=== PATIENT | female | born 1980 | race Caucasian/White ===

== ENCOUNTER 2018-04-13 15:00 | Inpatient (IN) | payer OTHER ==
[~2018-04-13] VITALS: Ht 177.8 cm; Wt 3.6 kg
[~2018-04-13 15:00] MED LIST: PRENATABS RX TA1 TAB
== END 2018-05-09 13:10 | disposition home or self-care, planned readmission (81) | DRG 785 ==
LOC: OB/GYN 04-27 15:00 → LDR 05-07 05:50 → SURG-SUITE 05-07 05:50 → O/R 05-07 15:21 → SURG-SUITE 05-07 20:06
PROVIDERS: Obstetrics & Gynecology Maternal & Fetal Medicine
PROC: 0UL70ZZ Occlusion of Bilateral Fallopian Tubes, Open Approach (ICD-10-PCS; 2018-05-07)
PROC: 4A1HXCZ Monitoring of Products of Conception, Cardiac Rate, External Approach (ICD-10-PCS; 2018-05-07)
PROC: 10D00Z1 Extraction of Products of Conception, Low, Open Approach (ICD-10-PCS; principal; 2018-05-07 13:30)
DX: O64.1XX0 Obstructed labor due to breech presentation, not applicable or unspecified (principal); Z3A.39 39 weeks gestation of pregnancy; Z37.0 Single live birth; Z30.2 Encounter for sterilization

== ENCOUNTER 2018-04-27 12:48 | Outpatient (CLI) | payer OTHER | END 2018-04-27 13:49 | disposition home or self-care (01) | LOC: NST 12:48 | DX: Z34.83 Encounter for supervision of other normal pregnancy, third trimester (principal) ==

== ENCOUNTER 2018-05-04 11:07 | Outpatient (CLI) | payer OTHER | END 2018-05-04 12:04 | disposition home or self-care (01) | LOC: NST 11:07 | DX: Z34.83 Encounter for supervision of other normal pregnancy, third trimester (principal) ==